=== PATIENT | male | born 1960 | race African-American/Black ===

== ENCOUNTER 2018-10-02 03:15 | Emergency (ER) | payer OTHER ==
[~2018-10-02] VITALS: Ht 180.3 cm; Wt 114.0 kg
[2018-10-02] MEDS ORDERED: ACETAMINOPHEN 325MG TABLET PO ONE (07:30)
[2018-10-02 12:06] VITALS: BP 124/82
== END 2018-10-02 12:09 | disposition home or self-care (01) ==
LOC: ER 03:15
DX: S09.8XXA Other specified injuries of head, initial encounter (principal); S16.1XXA Strain of muscle, fascia and tendon at neck level, initial encounter; R07.89 Other chest pain; M54.9 Dorsalgia, unspecified; M25.512 Pain in left shoulder; V43.52XA Car driver injured in collision with other type car in traffic accident, initial encounter; Y93.89 Activity, other specified; Y92.410 Unspecified street and highway as the place of occurrence of the external cause
CPT/HCPCS: 36415; 71045; 72131; 73030; 84484; 93005; 99284

== ENCOUNTER 2023-06-13 21:21 | Emergency (ER) | payer OTHER ==
[~2023-06-13] VITALS: Ht 177.8 cm; Wt 122.0 kg
[2023-06-13 21:32] VITALS: BP 164/94; O2SAT 100
[2023-06-14] MEDS ORDERED: NAPR-1129 MT (00:16)
[2023-06-14 01:06] VITALS: PULSE 99; RESP 18; TEMP 98.1
== END 2023-06-14 01:09 | disposition home or self-care (01) ==
LOC: ER 21:21
DX: S89.81XA Other specified injuries of right lower leg, initial encounter (principal); M25.461 Effusion, right knee; W19.XXXA Unspecified fall, initial encounter; Y93.89 Activity, other specified; Y92.89 Other specified places as the place of occurrence of the external cause; Y99.8 Other external cause status
CPT/HCPCS: 29505; 73560; 99283